=== PATIENT | male | born 1995 | race Caucasian/White ===

== ENCOUNTER 2023-02-19 19:15 | Emergency (ER) | payer OTHER ==
[2023-02-19 19:28] VITALS: BP 124/80; PULSE 75; RESP 18; TEMP 98; BMI 24.3
== END 2023-02-19 21:31 | disposition left against medical advice (07) ==
LOC: JERFT 19:15
DX: M54.50 Low back pain, unspecified (principal); Z53.21 Procedure and treatment not carried out due to patient leaving prior to being seen by health care provider
CPT/HCPCS: 99281-25